=== PATIENT | male | born 1985 | race Caucasian/White ===

== ENCOUNTER 2023-04-25 21:22 | Inpatient (IN) | payer BC, OTHER ==
[~2023-04-25] VITALS: Ht 182.9 cm; Wt 109.0 kg
[~2023-04-25 21:22] MED LIST: INSU100V13 SQ
[2023-04-25] MEDS ORDERED: piperacillin/tazo 3.375gm/50ml 50 ML IV ONE (21:50)
[2023-04-25 22:27] LABS: BASOPHILS % (AUTO) 0.3 % (0-1); EOSINOPHILS # (AUTO) 0.2 X10'3 (0-0.9); EOSINOPHILS % (AUTO) 1.6 % (0-6); HEMATOCRIT 43.3 % (42.0-52.0); HEMOGLOBIN 14.8 g/dl (14.0-17.9); LYMPHOCYTES # (AUTO) 1.6 X10'3 (1.1-4.8); LYMPHOCYTES % (AUTO) 16.6 % (21-51); MEAN CORPUSCULAR HEMOGLOBIN 31.7 PG (27.0-31.0); MEAN CORPUSCULAR HGB CONC 34.2 g/dL (33.0-36.5); MEAN CORPUSCULAR VOLUME 92.9 FL (78-98); MEAN PLATELET VOLUME 7.6 FL (7.4-10.4); MONOCYTES # (AUTO) 0.6 X10'3 (0-0.9); MONOCYTES % (AUTO) 6.5 % (2-12); NEUTROPHILS # (AUTO) 7.3 X10'3 (1.8-7.7); PLATELET COUNT 246 X10'3 (140-440); RED BLOOD COUNT 4.66 X10'6 (4.70-6.10); RED CELL DISTRIBUTION WIDTH 12.9 % (11.5-14.5); WHITE BLOOD COUNT 9.8 X10'3 (4.5-11.0)
[2023-04-25 22:41] LABS: ALANINE AMINOTRANSFERASE 48 U/L (12-78); ALBUMIN 3.6 G/DL (3.4-5.0); ALBUMIN/GLOBULIN RATIO 1.1 (1.1-1.5); ALKALINE PHOSPHATASE 115 IU/L (46-116); ANION GAP 8 (8-16); ASPARTATE AMINO TRANSFERASE 20 U/L (10-37); BILIRUBIN,TOTAL 0.7 MG/DL (0.1-1.0); BLOOD UREA NITROGEN 16 MG/DL (7-18); BUN/CREATININE RATIO 16.3 (10.0-20.0); CALCIUM 8.8 MG/DL (8.5-10.1); CHLORIDE 104 MMOL/L (99-107); CREATININE 0.98 MG/DL (0.60-1.10); GLUCOSE 174 MG/DL (70-104); POTASSIUM 3.7 MMOL/L (3.5-5.1); SODIUM 138 MMOL/L (135-145); TOTAL CARBON DIOXIDE 25.7 MMOL/L (24-32); eCRCL 111 ML/MIN; eGFR 85 ML/MIN
[2023-04-25] MEDS ORDERED: CLIN300C70 PO (23:05)
[2023-04-26] MEDS ORDERED: mag hydrox/Alum hydrox/simeth 30ml oral suspension PO PRN (01:20)
[2023-04-26] MEDS ORDERED: glucagon, human recombinant 1mg kit SUBCUT PRN (01:20)
[2023-04-26] MEDS ORDERED: acetaminophen 325mg tablet PO PRN (01:20)
[2023-04-26] MEDS ORDERED: MESSAGE TO PHARMACY PO ONE (01:20)
[2023-04-26] MEDS ORDERED: dextrose 50%-water 50ml dispensing syringe IV PRN ×2 (01:20)
[2023-04-26] MEDS ORDERED: HYDROcodone/acetaminophen 5mg/325mg tablet PO PRN (01:20)
[2023-04-26] MEDS ORDERED: morphine 2 MG/ML inj. syringe IV PRN ×2 (01:20)
[2023-04-26] MEDS ORDERED: ondansetron/PF 4mg/2ml inj IV PRN (01:20)
[2023-04-26] MEDS ORDERED: DEXTROSE 15 GM of carb/4 tabs (each vial/BOTTLE has 4 tablets) PO PRN ×2 (01:20)
[2023-04-26] MEDS ORDERED: bisacodyl 10mg suppository rectal RC PRN (01:20)
[2023-04-26] MEDS ORDERED: insulin Lispro (HumaLOG) vial - multi-dose SQ SCH (01:20)
[2023-04-26] MEDS ORDERED: HYDROcodone/acetaminophen 10/325mg tab PO PRN (01:20)
[2023-04-26] MEDS ORDERED: magnesium hydroxide 30ml (MOM) UD suspension PO PRN (01:20)
[2023-04-26] MEDS ORDERED: ondansetron 4mg rapidly disintigrating tab PO PRN (01:20)
[2023-04-26] MEDS ORDERED: vancomycin/NS 1 GM ADD-VANTAGE 250 ML X 1 DOSE IV ONE (01:45)
[2023-04-26 01:49] LABS: APTT 30 SECONDS (22-32); PROTHROMBIN TIME 10.5 SECONDS (9.0-12.0)
[2023-04-26 01:54] LABS: HEMOGLOBIN A1C 7.6 % (4.5-6.2)
[2023-04-26 02:06] LABS: CREATINE KINASE 146 U/L (39-308); PHOSPHORUS 3.1 MG/DL (2.3-4.5); PRO BRAIN NATRIURETIC PEPTIDE < 30 PG/ML (0-125); THYROID STIMULATING HORMONE 1.53 ulU/ml (0.34-4.50)
[2023-04-26] MEDS: normal saline 1000ml 1,000 ML IV SCH (02:32)
[2023-04-26] MEDS ORDERED: temazepam 15mg capsule PO ONE ×2 (02:55)
[2023-04-26] MEDS: acetaminophen 325mg tablet PO PRN ×2 (03:04→11:00)
--- NOTE | 2023-04-26 06:41 | NUR ---
MD LOCKHART DEXCOM USE.
[2023-04-26 07:16] VITALS: RESP 16; O2SAT 94
[2023-04-26 07:21] VITALS: BP 112/71; PULSE 79; RESP 16; TEMP 98.1; O2SAT 94
[2023-04-26] MEDS ORDERED: piperacillin/tazo 4.5gm/100ml 100 ML IV SCH (08:00)
[2023-04-26] MEDS ORDERED: heparin, porcine 5000 units/ml vial SQ SCH (08:00)
[2023-04-26 08:03] LABS: BILIRUBIN,URINE NEGATIVE (Neg); CLARITY,URINE CLEAR (Clear); COLOR,URINE YELLOW (Yellow); GLUCOSE, URINE >=1000 mg/dl (Neg); KETONES,URINE NEGATIVE (Neg); LEUKOCYTE ESTERASE ,URINE NEGATIVE (Neg); NITRITES, URINE NEGATIVE (Neg); OCCULT BLOOD,URINE NEGATIVE (Neg); PROTEIN,URINE NEGATIVE (Neg)
[2023-04-26 08:15] LABS: UA COLLECTION TYPE CLN CATCH MIDSTREAM
[2023-04-26 08:16] LABS: SQUAMOUS EPITHELIAL CELL,UR FEW /LPF (FEW)
[2023-04-26 08:17] LABS: BACTERIA,URINE NONE SEEN /HPF (Neg); RBC,URINE 0-2 /HPF (0-2); WBC,URINE 0-4 /HPF (0-4)
[2023-04-26 10:10] VITALS: BP 117/64; PULSE 81; RESP 14; TEMP 97.7; O2SAT 97
[2023-04-26] MEDS: vancomycin/NS 1 GM ADD-VANTAGE 250 ML IV SCH ×2 (11:00→19:55)
[2023-04-26] MEDS: pantoprazole 40mg Tablet.DR PO SCH (11:00)
[2023-04-26] MEDS: docusate sod 100mg capsule PO SCH ×2 (11:00→19:59)
--- NOTE | 2023-04-26 11:24 | NUR ---
Diabetes consult: Pt presents with an A1c of 7.6% this admit with a history of T1DM. RD attempted to see pt at bedside twice for diabetes education however both times pt was busy with RN and doctor therefore placed diabetes education handout in pt's chart. RD contact also provide and will remain available for any nutrition questions or concerns. Addendum: 04/26/23 at [address] Amended: Links added.
[2023-04-26] MEDS ORDERED: insulin pump SQ (12:51)
[2023-04-26] MEDS ORDERED: atorvastatin (13:06)
[2023-04-26] MEDS ORDERED: ATOR20TA66 PO (13:30)
[2023-04-26] MEDS ORDERED: INSU100V11 SQ (13:30)
[2023-04-26] MEDS: piperacillin/tazo 4.5gm/100ml 100 ML IV SCH ×2 (13:31→21:58)
[2023-04-26] MEDS: heparin, porcine 5000 units/ml vial SQ SCH (17:14)
[2023-04-26 18:00] VITALS: BP 115/78; PULSE 79; RESP 16; TEMP 98; O2SAT 95
--- NOTE | 2023-04-26 18:45 | NUR ---
Patient in room [facility]TH[facility] 4023. I have received report from NADER BOYLE and had the opportunity to ask questions and assume patient care.
[2023-04-26] MEDS ORDERED: [UNRECOGNIZED DRUG - OTHER] SQ PRN (18:55)
[2023-04-26 20:00] VITALS: RESP 18; O2SAT 96
[2023-04-26] MEDS ORDERED: temazepam 15mg capsule PO PRN (21:00)
[2023-04-26] MEDS ORDERED: insulin glargine (Lantus) pen - multi-dose SQ SCH (21:00)
--- NOTE | 2023-04-26 21:00 | NUR ---
PATIENT REPORTED BS 241 AND HE GAVE 1 UNIT OF INSULIN
[2023-04-26 22:00] VITALS: BP 114/60; PULSE 84; RESP 16; TEMP 97.6; O2SAT 97
[2023-04-27] MEDS: heparin, porcine 5000 units/ml vial SQ SCH ×3 (01:04→16:28)
[2023-04-27] MEDS ORDERED: VANCOMYCIN LEVEL IV ONE (02:30)
[2023-04-27 02:45] LABS: BASOPHILS % (AUTO) 0.3 % (0-1); EOSINOPHILS # (AUTO) 0.4 X10'3 (0-0.9); EOSINOPHILS % (AUTO) 5.5 % (0-6); HEMATOCRIT 42.3 % (42.0-52.0); HEMOGLOBIN 14.4 g/dl (14.0-17.9); LYMPHOCYTES # (AUTO) 2.1 X10'3 (1.1-4.8); LYMPHOCYTES % (AUTO) 29.7 % (21-51); MEAN CORPUSCULAR HEMOGLOBIN 31.6 PG (27.0-31.0); MEAN CORPUSCULAR HGB CONC 34.1 g/dL (33.0-36.5); MEAN CORPUSCULAR VOLUME 92.7 FL (78-98); MEAN PLATELET VOLUME 7.2 FL (7.4-10.4); MONOCYTES # (AUTO) 0.6 X10'3 (0-0.9); MONOCYTES % (AUTO) 9.1 % (2-12); NEUTROPHILS # (AUTO) 3.9 X10'3 (1.8-7.7); NEUTROPHILS % (AUTO) 55.4 % (42-75); PLATELET COUNT 225 X10'3 (140-440); RED BLOOD COUNT 4.56 X10'6 (4.70-6.10); RED CELL DISTRIBUTION WIDTH 12.8 % (11.5-14.5); WHITE BLOOD COUNT 7.1 X10'3 (4.5-11.0)
[2023-04-27 03:04] LABS: ALANINE AMINOTRANSFERASE 41 U/L (12-78); ALBUMIN/GLOBULIN RATIO 0.9 (1.1-1.5); ALKALINE PHOSPHATASE 98 IU/L (46-116); ANION GAP 5 (8-16); ASPARTATE AMINO TRANSFERASE 19 U/L (10-37); BILIRUBIN,TOTAL 0.7 MG/DL (0.1-1.0); BLOOD UREA NITROGEN 14 MG/DL (7-18); BUN/CREATININE RATIO 15.1 (10.0-20.0); CALCIUM 8.5 MG/DL (8.5-10.1); CHLORIDE 107 MMOL/L (99-107); CHOL/HDL RATIO 2.3 (0.00-4.99); CHOLESTEROL 115 MG/DL (0-200); CREATININE 0.93 MG/DL (0.60-1.10); GLUCOSE 124 MG/DL (70-104); HDL CHOLESTEROL 50 MG/DL (35-60); LDL CHOLESTEROL 57 MG/DL (50-100); POTASSIUM 3.7 MMOL/L (3.5-5.1); SODIUM 139 MMOL/L (135-145); TOTAL CARBON DIOXIDE 27.4 MMOL/L (24-32); TOTAL PROTEIN 6.4 G/DL (6.4-8.2); TRIGLYCERIDES 36 MG/DL (20-135); VANCOMYCIN,TROUGH 12.5 ug/mL (10.0-20.0); eCRCL 117 ML/MIN; eGFR 90 ML/MIN
[2023-04-27] MEDS: vancomycin/NS 1 GM ADD-VANTAGE 250 ML IV SCH (03:26)
[2023-04-27] MEDS: piperacillin/tazo 4.5gm/100ml 100 ML IV SCH (05:30)
[2023-04-27] MEDS: acetaminophen 325mg tablet PO PRN ×2 (05:44→19:39)
[2023-04-27 06:06] VITALS: BP 123/71; PULSE 83; RESP 15; TEMP 97.8; O2SAT 93
--- NOTE | 2023-04-27 06:30 | NUR ---
Patient in room [facility]TH[facility] 4023. I have received report from NADER BOYLE and had the opportunity to ask questions and assume patient care.
[2023-04-27 08:47] VITALS: RESP 13; O2SAT 96
[2023-04-27] MEDS: atorvastatin 20mg tablet PO SCH (08:56)
[2023-04-27] MEDS: pantoprazole 40mg Tablet.DR PO SCH (08:56)
[2023-04-27] MEDS: docusate sod 100mg capsule PO SCH (08:56)
[2023-04-27 10:51] VITALS: BP 124/72; PULSE 90; RESP 16; TEMP 97.3; O2SAT 97
--- NOTE | 2023-04-27 11:31 | NUR ---
RE: Edilberto Barahona room 4022V Positive blood cultures in aerobic bottle after 1 day Gram positive cocci in Right arm Papi BOYLE [id number]
[2023-04-27] MEDS: VANCOmycin 1250MG/NS 250ml Bag 250 ML IV SCH ×2 (12:00→19:32)
--- NOTE | 2023-04-27 13:54 | NUR ---
PRESSURE ULCER EDUCATION: DEFINITION: A pressure ulcer is an area of skin that breaks down when you stay in one position too long. The constant pressure against the skin reduces the blood flow to that area and the affected tissue dies. CAUSES: "Being bedridden or in a wheelchair "Fragile skin "Having a chronic condition, such as diabetes or vascular disease "Inability to move certain parts of your body without assistance "Older age "Incontinence of urine or stool SYMPTOMS: "A reddened area that DOES NOT turn white when pressed on - this can be the beginning of a pressure ulcer "A blister, deep sore or a crater - these can be advanced pressure ulcers FIRST AID: "Relieve the pressure on this area "Keep the area clean and dry "Call your primary doctor if you see any of the above symptoms "DO NOT massage the area "DO NOT use a donut shaped or ring shaped pillow- these actually interfere with the blood flow and cause complications PREVENTION: "Check for pressure ulcers everyday "Change position at least every two hours to relieve pressure "Use items that help relieve pressure- pillows, sheepskin, foam padding, and powders. "Keep skin clean and dry "Eat healthy well balanced meals "Exercise daily IF YOU SEE ANY OF THESE SYMPTOMS WHILE IN THE HOSPITAL - TELL YOUR NURSE IMMEDIATELY. IF YOU SEE ANY OF THESE SYMPTOMS WHILE AT HOME OR HAVE ANY QUESTIONS OR CONCERNS ABOUT PRESSURE ULCERS - CALL YOUR PRIMARY DOCTOR IMMEDIATELY. Addendum: 04/27/23 at 1355 by He Alves RN Amended: Links added.
[2023-04-27] MEDS: normal saline 1000ml 1,000 ML IV SCH (17:15)
[2023-04-27 20:00] VITALS: RESP 18; O2SAT 97
[2023-04-28] MEDS: heparin, porcine 5000 units/ml vial SQ SCH ×2 (00:49→07:43)
[2023-04-28] MEDS: normal saline 1000ml 1,000 ML IV SCH (01:09)
[2023-04-28] MEDS: VANCOmycin 1250MG/NS 250ml Bag 250 ML IV SCH (04:10)
[2023-04-28 06:00] VITALS: BP 111/67; PULSE 75; RESP 17; TEMP 98.7; O2SAT 98
--- NOTE | 2023-04-28 06:43 | NUR ---
Patient in room [facility]TH[facility] 4023. I have received report from [place]NA Worley and had the opportunity to ask questions and assume patient care.
[2023-04-28 06:47] LABS: BASOPHILS % (AUTO) 0.7 % (0-1); EOSINOPHILS # (AUTO) 0.3 X10'3 (0-0.9); EOSINOPHILS % (AUTO) 4.2 % (0-6); HEMATOCRIT 43.3 % (42.0-52.0); HEMOGLOBIN 14.8 g/dl (14.0-17.9); LYMPHOCYTES # (AUTO) 1.9 X10'3 (1.1-4.8); LYMPHOCYTES % (AUTO) 26.8 % (21-51); MEAN CORPUSCULAR HEMOGLOBIN 31.8 PG (27.0-31.0); MEAN CORPUSCULAR HGB CONC 34.2 g/dL (33.0-36.5); MEAN CORPUSCULAR VOLUME 92.9 FL (78-98); MEAN PLATELET VOLUME 7.3 FL (7.4-10.4); MONOCYTES # (AUTO) 0.5 X10'3 (0-0.9); MONOCYTES % (AUTO) 7.3 % (2-12); NEUTROPHILS # (AUTO) 4.3 X10'3 (1.8-7.7); PLATELET COUNT 238 X10'3 (140-440); RED BLOOD COUNT 4.66 X10'6 (4.70-6.10); RED CELL DISTRIBUTION WIDTH 12.7 % (11.5-14.5); WHITE BLOOD COUNT 7.1 X10'3 (4.5-11.0)
--- NOTE | 2023-04-28 06:50 | NUR ---
Problems reprioritized. Patient report given, questions answered & plan of care reviewed with SARAH ANDRADE.
[2023-04-28 07:17] LABS: ALANINE AMINOTRANSFERASE 38 U/L (12-78); ALBUMIN 2.9 G/DL (3.4-5.0); ALBUMIN/GLOBULIN RATIO 0.9 (1.1-1.5); ALKALINE PHOSPHATASE 94 IU/L (46-116); ANION GAP 5 (8-16); ASPARTATE AMINO TRANSFERASE 22 U/L (10-37); BILIRUBIN,TOTAL 0.6 MG/DL (0.1-1.0); BLOOD UREA NITROGEN 13 MG/DL (7-18); BUN/CREATININE RATIO 14.3 (10.0-20.0); C-REACTIVE PROTEIN 3.27 MG/DL (0.0-0.5); CALCIUM 8.3 MG/DL (8.5-10.1); CHLORIDE 108 MMOL/L (99-107); CREATININE 0.91 MG/DL (0.60-1.10); GLUCOSE 126 MG/DL (70-104); SODIUM 140 MMOL/L (135-145); TOTAL CARBON DIOXIDE 26.8 MMOL/L (24-32); TOTAL PROTEIN 6.2 G/DL (6.4-8.2); eCRCL 120 ML/MIN; eGFR > 90 ML/MIN
[2023-04-28] MEDS: pantoprazole 40mg Tablet.DR PO SCH (07:42)
[2023-04-28] MEDS: atorvastatin 20mg tablet PO SCH (07:42)
[2023-04-28 08:00] VITALS: RESP 17; O2SAT 98
[2023-04-28] MEDS ORDERED: terbinafine 250mg tablet PO SCH (08:00)
[2023-04-28] MEDS ORDERED: VANCOMYCIN LEVEL IV ONE (10:30)
[2023-04-28] MEDS ORDERED: TERB250T89 PO (13:08)
--- NOTE | 2023-04-28 14:44 | NUR ---
ADMINISTRATIVE OFFICER documentation: I have reviewed and agree with all interventions, assessments performed and documented by Haseeb Castellano LVN.
--- NOTE | 2023-04-28 17:21 | NUR ---
Pt stable for discharge. IV discontinued prior to d/c. Patient d/c with PICC line in place to continue on IV ABX at home for 6 weeks. Patient signed all d/c paperwork. Spouse present at time of discharge. Patient assisted out of facility with the assistance of one staff member and family present. Patient left in private vehicle with family to go home.
== END 2023-04-28 15:27 | disposition home or self-care (01) | DRG 638 ==
LOC: ER 21:23 → ED HOLD 04-26 01:31 → ORTHO 4S 04-26 06:55
PROVIDERS: ADMIT Family Medicine; ATTEND Family Medicine
PROC: 02HV33Z Insertion of Infusion Device into Superior Vena Cava, Percutaneous Approach (ICD-10-PCS; principal; 2023-04-28)
PROC: B548ZZA Ultrasonography of Superior Vena Cava, Guidance (ICD-10-PCS; 2023-04-28)
DX: E10.69 Type 1 diabetes mellitus with other specified complication (principal); M86.171 Other acute osteomyelitis, right ankle and foot; R78.81 Bacteremia; L03.031 Cellulitis of right toe; Z96.41 Presence of insulin pump (external) (internal); R00.0 Tachycardia, unspecified; L60.0 Ingrowing nail; B35.1 Tinea unguium; Z79.4 Long term (current) use of insulin
CPT/HCPCS: 36415; 36569; 70200; 73630; 73720; 76942; 80053; 80061; 80202; 81001; 82550; 82948; 83036; 83605; 83735; 83880; 84100; 84145; 84443; 85025; 85610; 85651; 85730; 86140; 87040; 87070; 87077; 87081; 87186; 99285; A6449; C1751; G0378; J1644; J2543; J3370; J7030